=== PATIENT | female | born 1930 ===

== ENCOUNTER 2017-12-07 22:33 | Inpatient (IN) | payer MEDICARE, MEDICAID ==
--- NOTE | 2017-12-07 22:42 | C.PDOC ---
History Of Present Illness 87 year old female with hx of diabetes presents to the ED for evaluation of a hypoglycemic episode earlier today while at home. Patient reports that she has had cold symptoms for the past week and has been evaluated by her PCP for these complaints. She denies pain or lightheadedness. Per EMS, pt with blood sugar in the 30s upon their evaluation. She was given 1 amp D50 en route. Time Seen by Provider: 12/07/17 22:40 Chief Complaint (Nursing): Altered Mental Status History Per: Patient History/Exam Limitations: None Onset/Duration Of Symptoms: Other (Episode) Usual Baseline: Alert Oriented Exacerbating Factor(s): Diabetic Recent travel outside of the [place]: No Past Medical History Reviewed: Historical Data, Nursing Documentation, Vital Signs Vital Signs: Last Vital Signs Temp Pulse 98 H 12/07/17 22:37 Resp 21 12/07/17 22:37 BP 175/88 H 12/07/17 22:37 Pulse Ox 98 12/07/17 22:37 - Medical History PMH: Diabetes Family History: States: No Known Family Hx Review Of Systems Except As Marked, All Systems Reviewed And Found Negative. Constitutional: Negative for: Fever, Chills Cardiovascular: Negative for: Chest Pain, Light Headedness Respiratory: Negative for: Shortness of Breath Gastrointestinal: Negative for: Abdominal Pain Genitourinary: Negative for: Dysuria Skin: Negative for: Rash Neurological: Negative for: Headache Physical Exam - Physical Exam Appears: Well, Non-toxic, No Acute Distress Skin: Normal Color, Warm, Dry Head: Atraumatic, Normacephalic Eye(s): bilateral: Normal Inspection, PERRL, EOMI Oral Mucosa: Moist Throat: Normal Neck: Normal, Normal ROM, Supple Chest: Symmetrical Cardiovascular: Rhythm Regular Respiratory: No Rales, Rhonchi (bilaterally), Wheezing (bilaterally ) Gastrointestinal/Abdominal: Soft, No Tenderness Back: Normal Inspection Extremity: Normal ROM, No Deformity Extremity: Bilateral: Atraumatic Neurological/Psych: Oriented x3, Normal Speech, Other (Awake and alert) ED Course And Treatment - Laboratory Results Result Diagrams: 12/07/17 23:17 12/07/17 23:17 Medical Decision Making Medical Decision Making: Impression: Hypoglycemia Plan: Will order ABG, EKG, CMP, CBC, CXR, blood culture, peak flow pre and post , and UA. Duoneb and IV fluids administered. Disposition Discussed With DrMargaret: Moe Alejo Doctor Will See Patient In The: Hospital Counseled Patient/Family Regarding: Diagnosis - Disposition Disposition: HOSPITALIZED Disposition Time: 00:45 Condition: STABLE Forms: [facility] (Libyan) - POA Present On Arrival: None - Clinical Impression Clinical Impression: Hypoglycemia associated with diabetes, Bronchitis, Wheezes - Scribe Statement The provider has reviewed the documentation as recorded by the Scribe (Riccardo Ang) Provider Attestation: All medical record entries made by the Scribe were at my direction and personally dictated by me. I have reviewed the chart and agree that the record accurately reflects my personal performance of the history, physical exam, medical decision making, and the department course for this patient. I have also personally directed, reviewed, and agree with the discharge instructions and disposition.
[2017-12-07] MEDS ORDERED: Albuterol-Ipratrop 3 mg / 0.5 (3 ml) UD ONE (22:49)
[2017-12-07] MEDS ORDERED: Sodium Chloride 0.9% 1,000 ML IV ONE (22:51)
[2017-12-07] MEDS ORDERED: Albuterol-Ipratrop 3 mg / 0.5 (3 ml) UD INH STA (22:53)
[2017-12-07 23:19] LABS: BASO % 0.2 % (0.0-2.0); LYMPH # 0.3 K/uL (1.0-4.3); LYMPH % 6.7 % (20.0-40.0); MEAN CELL VOLUME 87.3 fL (81.0-99.0); MEAN CORPUSCULAR HEMOGLOBIN 29.9 pg (27.0-31.0); MEAN CORPUSCULAR HGB CONC 34.2 g/dL (33.0-37.0); MEAN PLATELET VOLUME 7.7 fL (7.2-11.7); MONO # 0.3 K/uL (0.0-0.8); MONO % 5.9 % (0.0-10.0); NEUT # 3.9 K/uL (1.8-7.0); NEUT % 87.2 % (50.0-75.0); PLATELET COUNT 132 K/uL (130-400); RBC 4.34 Mil/uL (3.80-5.20); RED CELL DISTRIBUTION WIDTH 13.9 % (11.5-14.5); WHITE BLOOD COUNT 4.5 K/uL (4.8-10.8)
[2017-12-07 23:30] LABS: ABG ALLEN TEST POS; ARTERIAL BLOOD GAS HCO3 23.2 mmol/L (21-28); ARTERIAL BLOOD GAS HEMOGLOBIN 12.6 g/dL (11.7-17.4); ARTERIAL BLOOD GAS O2 SAT 100.2 % (95-98); ARTERIAL BLOOD GAS PCO2 31 mm/Hg (35-45); ARTERIAL BLOOD GAS PH 7.44 (7.35-7.45); ARTERIAL BLOOD GAS PO2 218 mm/Hg (80-100); ARTERIAL BLOOD GAS TCO2 22.1 mmol/L (22-28)
[2017-12-07 23:31] LABS: ALBUMIN 4.1 g/dL (3.5-5.0); ALT/SGPT 63 U/L (9-52); AST/SGOT 93 U/L (14-36); BLOOD UREA NITROGEN 18 mg/dL (7-17); CALCIUM 8.3 mg/dl (8.6-10.4); GFR AFRICAN-AMERICAN > 60; GFR NON-AFRICAN AMERICAN 52
[2017-12-08 00:06] LABS: BANDS 28 % (0-2); LYMPHOCYTE 6 % (20-40); MONOCYTE 7 % (0-10); NEUTROPHIL 58 % (50-75); PLATELET ESTIMATE NORMAL (NORMAL); REACTIVE LYMPHOCYTES 1 % (0-0); TOTAL CELLS COUNTED 100
[2017-12-08] MEDS ORDERED: cefTRIAXone IV 1 gm in Dextros 50 ML IVPB ONE (00:18)
[2017-12-08] MEDS ORDERED: Azithromycin 500mg/250ML NS 500 MG/250 ML BAG IV STA (00:18)
--- NOTE | 2017-12-08 03:45 | CP.PCM.HP ---
History of Present Illness - History of Present Illness History of Present Illness: CC: "My mother became drowsy and stopped responding" HPI: Mrs Waters is a 87 year old female with a past medical history of DM, HTN, HLD, DM who was BIBA last night because the patient became drowsy and stopped responding. The history was provided/translated by the patient's daughter. Per daughter, yesterday evening around 7pm the patient was sitting in a chair when she fell out of the chair. EMS was called however the patient refused to go to the hospital. An hour later the patient was laying in bed when the patient became starting mumbling to herself and would not respond to her daughter. Her eyes rolled back. This frightened the daughter and once again EMS was called, this time the patient was taken to the hospital. Her blood sugar was checked by EMS and found to be in the 30s - she was given 1 amp D50 en route to hospital. Earlier in the day the patient had a outside sales account representative than usual breakfast of pancakes and coffee, a soup in the afternoon, and some vegetables in the evening. She recently began seeing a new PMD who prescribed her the combination drug glipizide/metformin (Rx'd 12/05/17) which is supposed to be taken once a day however the patient has been incorrectly taking this drug twice a day. Additionally, the patient has had cold symptoms since last (4 days ago) with sore throat and dry cough. The patient went to see her PMD and was prescribed azithromycin (Rx'd 12/05/17). Of note, her daughter states she (the daughter) is recovering from the flu and has had regular contact with her mother the last few days. Denies fever, chills, diarrhea, dysuria, nausea, vomiting, chest pain, shortness of breath. 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 absent: Chills, Fever - EENT Eyes: absent: Change in Vision - Cardiovascular Cardiovascular: absent: Chest Pain, Diaphoresis, Dyspnea, Leg Edema - Respiratory Respiratory: Cough. absent: Dyspnea on Exertion - Gastrointestinal Gastrointestinal: absent: Abdominal Pain, Constipation, Diarrhea, Nausea, Vomiting - Genitourinary Genitourinary: absent: Dysuria - Musculoskeletal Musculoskeletal: Abnormal Gait Additional comments: Patient has difficulty ambulating at baseline - Integumentary Integumentary: absent: Bleeding Lesions - Neurological Neurological: absent: Confusion Past Patient History - Infectious Disease Hx of Infectious Diseases: None - Past Social History Smoking Status: Never Smoked - CARDIAC Hx Hypertension: Yes - PULMONARY Hx Respiratory Disorders: No - ENDOCRINE/METABOLIC Hx Diabetes Mellitus Type 2: Yes Hx Hypothyroidism: Yes - PSYCHIATRIC Hx Substance Use: No - SURGICAL HISTORY Hx Surgeries: No - ANESTHESIA Hx Anesthesia: No Meds Allergies/Adverse Reactions: Allergies Allergy/AdvReac Type Severity Reaction Status Date / Time No Known Allergies Allergy Verified 12/07/17 22:47 Physical Exam - Constitutional Appears: Well, No Acute Distress, Younger Than Stated Age - Head Exam Head Exam: ATRAUMATIC, NORMAL INSPECTION - Eye Exam Eye Exam: EOMI, PERRL - ENT Exam ENT Exam: Mucous Membranes Moist - Respiratory Exam Respiratory Exam: Wheezes, NORMAL BREATHING PATTERN. absent: Rales, Rhonchi Additional comments: diffuse wheezing bilaterally - Cardiovascular Exam Cardiovascular Exam: REGULAR RHYTHM, +S1, +S2. absent: Bradycardia, Tachycardia , JVD, Systolic Murmur - GI/Abdominal Exam GI & Abdominal Exam: Normal Bowel Sounds, Soft. absent: Distended, Firm, Tenderness - Extremities Exam Extremities exam: Positive for: normal inspection Additional comments: age related pigmentary changes in LE b/l - Neurological Exam Neurological exam: Oriented x3 - Skin Skin Exam: Intact, Normal Color, Warm Results - Vital Signs Recent Vital Signs: Last Vital Signs Temp Pulse 85 12/08/17 02:51 Resp 20 12/08/17 02:51 BP 129/56 L 12/08/17 02:51 Pulse Ox 98 12/08/17 02:51 - Labs Result Diagrams: 12/07/17 23:17 12/07/17 23:17 Labs: Laboratory Results - last 24 hr 12/07/17 12/07/17 12/07/17 23:17 23:17 23:25 WBC 4.5 L RBC 4.34 Hgb 13.0 Hct 37.9 MCV 87.3 MCH 29.9 MCHC 34.2 RDW 13.9 Plt Count 132 MPV 7.7 Neut % (Auto) 87.2 H Lymph % (Auto) 6.7 L [place] % (Auto) 5.9 Eos % (Auto) 0.0 Baso % (Auto) 0.2 Neut # (Auto) 3.9 Lymph # (Auto) 0.3 L [place] # (Auto) 0.3 Eos # (Auto) 0.0 Baso # (Auto) 0.0 Neutrophils % (Manual) 58 Band Neutrophils % 28 H* Lymphocytes % (Manual) 6 L Reactive Lymphs % 1 H Monocytes % (Manual) 7 Platelet Estimate Normal Puncture Site Rr pCO2 31 L pO2 218 H HCO3 23.2 ABG pH 7.44 ABG Total CO2 22.1 ABG O2 Saturation 100.2 H ABG Base Excess -2.2 L ABG Hemoglobin 12.6 ABG Carboxyhemoglobin 1.7 H POC ABG HHb (Measured) -0.2 L ABG Methemoglobin 1.8 Carter Test Pos A-a O2 Difference -7.0 Respiratory Index 0 Hgb O2 Saturation 96.8 Vent Mode Pt on neb tx FiO2 35.0 Sodium 123 L Potassium 3.7 Chloride 87 L Carbon Dioxide 23 Anion Gap 17 BUN 18 H Creatinine 1.0 Est GFR ( Amer) > 60 Est GFR (Non-Af Amer) 52 Random Glucose 167 H Calcium 8.3 L Total Bilirubin 0.8 AST 93 H ALT 63 H Alkaline Phosphatase 76 Total Protein 8.3 Albumin 4.1 Globulin 4.2 H Albumin/Globulin Ratio 1.0 Influenza Typ A,B (EIA) 12/08/17 02:26 WBC RBC Hgb Hct MCV MCH MCHC RDW Plt Count MPV Neut % (Auto) Lymph % (Auto) [place] % (Auto) Eos % (Auto) Baso % (Auto) Neut # (Auto) Lymph # (Auto) [place] # (Auto) Eos # (Auto) Baso # (Auto) Neutrophils % (Manual) Band Neutrophils % Lymphocytes % (Manual) Reactive Lymphs % Monocytes % (Manual) Platelet Estimate Puncture Site pCO2 pO2 HCO3 ABG pH ABG Total CO2 ABG O2 Saturation ABG Base Excess ABG Hemoglobin ABG Carboxyhemoglobin POC ABG HHb (Measured) ABG Methemoglobin Carter Test A-a O2 Difference Respiratory Index Hgb O2 Saturation Vent Mode FiO2 Sodium Potassium Chloride Carbon Dioxide Anion Gap BUN Creatinine Est GFR ( Amer) Est GFR (Non-Af Amer) Random Glucose Calcium Total Bilirubin AST ALT Alkaline Phosphatase Total Protein Albumin Globulin Albumin/Globulin Ratio Influenza Typ A,B (EIA) Pos for influenza a H Assessment & Plan (1) Hypoglycemia associated with diabetes Assessment and Plan: Per EMS, Patient with blood sugar in 30s en route to ER HOLD home glipizide/metformin 5-500 combination drug Start metformin 500mg PO BID Accuchecks ACHS ISS - Low dose F/U HgbA1C (HgbA1C 6.4 in 05/2017) Status: Acute Priority: High (2) Influenza A Assessment and Plan: Positive for Influenza A screen Wheezing b/l Bandemia Airborne isolation F/U Procalcitonin Tamiflu 75mg PO BID Cont home med Azithromycin (prescribed by PMD) 250mg PO QD (to cover for community acquired pneumonia) * EKG reviewed, QT 440ms Status: Acute Priority: High (3) Hyponatremia Assessment and Plan: Na 123 on admission; malaise/lethargy/confusion could be due to hyponatremia as well as hypoglycemic episode F/U urine osmolality, plasma osmolality F/U cortisol F/U B12 Status: Acute Priority: High (4) Hypothyroidism Assessment and Plan: Cont home levothyroxine 50mcg PO QD F/U TSH/Free T4 Status: Chronic Priority: Medium (5) Hyperlipemia Assessment and Plan: Cont home med Atorvastatin 10mg PO QD Lipid Panel in 05/2017 NORMAL Status: Chronic Priority: Medium (6) Hypertension Assessment and Plan: Cont home med amlodipine besylate 5mg PO QD Cont home med lopressor 100mg PO BID Status: Chronic Priority: Medium (7) Prophylactic measure Assessment and Plan: Protonix 40mg PO QD Lovenox 40mg SC QD Heart healthy carb consistent diet Vitamin C 500mg PO QD Status: Acute Priority: Low
[2017-12-08] MEDS ORDERED: (Novolin R) Insulin Human Regular 100 units/ml vial SC SCH (07:30)
[2017-12-08 08:13] LABS: BASO % 0.1 % (0.0-2.0); HEMOGLOBIN 11.6 g/dL (11.0-16.0); LYMPH # 0.6 K/uL (1.0-4.3); LYMPH % 12.3 % (20.0-40.0); MEAN CELL VOLUME 86.5 fL (81.0-99.0); MEAN CORPUSCULAR HEMOGLOBIN 29.9 pg (27.0-31.0); MEAN CORPUSCULAR HGB CONC 34.5 g/dL (33.0-37.0); MEAN PLATELET VOLUME 7.6 fL (7.2-11.7); MONO # 0.3 K/uL (0.0-0.8); MONO % 6.8 % (0.0-10.0); NEUT # 3.8 K/uL (1.8-7.0); NEUT % 80.8 % (50.0-75.0); NRBC % 0.1 % (0.0-2.0); RBC 3.89 Mil/uL (3.80-5.20); RED CELL DISTRIBUTION WIDTH 13.5 % (11.5-14.5); WHITE BLOOD COUNT 4.7 K/uL (4.8-10.8)
[2017-12-08 08:33] LABS: ALBUMIN 3.5 g/dL (3.5-5.0); ALT/SGPT 53 U/L (9-52); AST/SGOT 83 U/L (14-36); BLOOD UREA NITROGEN 13 mg/dL (7-17); CALCIUM 7.9 mg/dl (8.6-10.4); GFR AFRICAN-AMERICAN > 60; GFR NON-AFRICAN AMERICAN > 60; MAGNESIUM 1.9 mg/dL (1.6-2.3)
--- NOTE | 2017-12-08 08:37 | RAD ---
Chest x-ray single frontal view History: Diabetic. Comparison: 12/07/2017 Findings: Biapical pleural thickening with upper lobe granulomatous changes. Diffuse increased interstitial lung markings. Scattered nodular densities in the right upper lung zone. Tortuous aorta. Calcification at the aortic knob. Degenerative changes in the spine and shoulders. Impression: Biapical pleural thickening with upper lobe granulomatous changes. Diffuse increased interstitial lung markings. Scattered nodular densities in the right upper lung zone. Tortuous aorta.
[2017-12-08 08:53] LABS: URINE BACTERIA RARE (<OCC); URINE BILIRUBIN NEGATIVE (NEGATIVE); URINE BLOOD 2+ (NEGATIVE); URINE CLARITY Clear (Clear); URINE COLOR Yellow (YELLOW); URINE GLUCOSE (UA) 1+ mg/dL (Normal); URINE LEUKOCYTE ESTERASE NEG Leu/uL (Negative); URINE NITRATE NEGATIVE (NEGATIVE); URINE PROTEIN NEGATIVE (NEGATIVE); URINE UROBILINOGEN NORMAL mg/dL (0.2-1.0)
[2017-12-08] MEDS ORDERED: Moxifloxacin IV 400mg/250ml NS 400 MG/250 ML BAG IVPB SCH (09:45)
[2017-12-08] MEDS ORDERED: ATORVASTATIN 10 MG PO SCH (10:00)
[2017-12-08] MEDS: (Novolin R) Insulin Human Regular 100 units/ml vial SC SCH ×3 (11:35→23:08)
[2017-12-08] MEDS: Levothyroxine 50 MCG TAB PO SCH (11:40)
[2017-12-08] MEDS: Oseltamivir 6 MG/ML PO SCH ×2 (11:40→19:30)
[2017-12-08] MEDS: Enoxaparin 40 mg Syringe SC SCH (11:40)
[2017-12-08] MEDS: Pantoprazole 40 mg EC Tab PO SCH (11:40)
--- NOTE | 2017-12-08 15:09 | CP.PCM.PN ---
<AnirudhTrisha - Last Filed: 12/08/17 15:00> Subjective - Date & Time of Evaluation Date of Evaluation: 12/08/17 Time of Evaluation: 15:00 - Subjective Subjective: Patient seen and examined at bedside. Patient resting comfortably in bed with no new complaints at this time. Patient says she feels much better today although she did have a fever this morning. Patient does not complain of cough, however she coughs when straining, per nursing. She denies chills, chest pain, SOB, palpitations, abdominal pain, nausea, vomiting, diarrhea, constipation, leg pain/swelling. Objective - Vital Signs/Intake and Output Vital Signs (last 24 hours): Temp Pulse Resp BP Pulse Ox 98.7 F 51 L 17 92/39 L 95 12/08/17 12:49 12/08/17 14:22 12/08/17 14:22 12/08/17 14:22 12/08/17 14:22 - Medications Medications: Current Medications Acetaminophen (Tylenol 325mg Tab) 650 mg PO Q6 PRN PRN Reason: Fever >100.4 F Last Admin: 12/08/17 11:45 Dose: 650 mg Amlodipine Besylate (Norvasc) 5 mg PO DAILY [facility] Last Admin: 12/08/17 11:40 Dose: 5 mg Ascorbic Acid (Vitamin C 500 Mg Tab) 500 mg PO DAILY [facility] Last Admin: 12/08/17 11:40 Dose: 500 mg Enoxaparin Sodium (Lovenox) 40 mg SC DAILY [facility] Last Admin: 12/08/17 11:40 Dose: 40 mg Gabapentin (Neurontin) 100 mg PO TID [facility] Last Admin: 12/08/17 11:40 Dose: 100 mg Sodium Chloride (Sodium Chloride 0.9%) 1,000 mls @ 50 mls/hr IV .Q20H ONE Stop: 12/08/17 18:50 Last Admin: 12/07/17 23:10 Dose: 50 mls/hr Moxifloxacin HCl (Avelox Iv 400mg/250ml Ns) 400 mg in 250 mls @ 167 mls/hr IVPB Q24H [facility] Last Admin: 12/08/17 11:10 Dose: 167 mls/hr Insulin Human Regular (Novolin R) 0 unit SC ACHS [facility] PRN Reason: Protocol Last Admin: 12/08/17 11:35 Dose: Not Given Levothyroxine Sodium (Synthroid) 50 mcg PO DAILY@0630 [facility] Last Admin: 12/08/17 11:40 Dose: 50 mcg Metoprolol Tartrate (Lopressor) 100 mg PO BID [facility] Last Admin: 12/08/17 11:40 Dose: 100 mg Oseltamivir Phosphate (Tamiflu Susp) 30 mg PO BID [facility] Stop: 12/13/17 07:09 Last Admin: 12/08/17 11:40 Dose: 30 mg Pantoprazole Sodium (Protonix Ec Tab) 40 mg PO DAILY [facility] Last Admin: 12/08/17 11:40 Dose: 40 mg Rosuvastatin Calcium (Crestor) 5 mg PO HS [facility] - Labs Labs: 12/08/17 08:02 12/08/17 08:02 - Constitutional Appears: Non-toxic, No Acute Distress - Head Exam Head Exam: ATRAUMATIC, NORMAL INSPECTION, NORMOCEPHALIC - Eye Exam Eye Exam: EOMI - ENT Exam ENT Exam: Mucous Membranes Moist - Respiratory Exam Respiratory Exam: Rales (right side ), Wheezes (right sided), NORMAL BREATHING PATTERN. absent: Accessory Muscle Use, Rhonchi, Respiratory Distress - Cardiovascular Exam Cardiovascular Exam: RRR, +S1, +S2. absent: Bradycardia, Tachycardia - GI/Abdominal Exam GI & Abdominal Exam: Soft, Normal Bowel Sounds. absent: Distended, Tenderness - Extremities Exam Extremities Exam: Normal Inspection. absent: Calf Tenderness, Pedal Edema - Neurological Exam Neurological Exam: Alert, Awake, Oriented x3 - Psychiatric Exam Psychiatric exam: Normal Affect, Normal Mood - Skin Skin Exam: Dry, Intact, Normal Color, Warm Assessment and Plan - Assessment and Plan (Free Text) Plan: Hypoglycemia associated with diabetes * Blood sugar in 30s en route to ER per EMS * Accuchecks ACHS * HgbA1C 6.1 Meds: * Start metformin 500mg PO BID * ISS - Low dose * HOLD home glipizide/metformin 5-500 combination drug Influenza A * Bandemia * Mild Leukopenia * Airborne isolation * Procalcitonin 0.25 Meds * Tamiflu 75mg PO BID * Moxifloxacin 400 mg Q24 * Held home med Azithromycin (prescribed by PMD) 250mg PO QD (to cover for community acquired pneumonia) Cough * f/u strep pneumo * f/u mycoplasma pneumo * f/u legionella * f/u rapid strep * f/u throat culture * f/u blood culture Meds * Promethazine with codeine prn * Duonebs prn Hyponatremia * malaise/lethargy/confusion could be due to hyponatremia as well as hypoglycemic episode * F/U urine osmolality, plasma osmolality * Cortisol: 20.8 * B12: 275 Transaminitis * Consider hep panel Hypothyroidism * Cont home levothyroxine 50mcg PO QD * TSH/Free T4: 0.63/0.88 Hyperlipemia * Cont home med Atorvastatin 10mg PO QD * Lipid Panel in 05/2017 NORMAL Hypertension * Cont home med amlodipine besylate 5mg PO QD * Cont home med lopressor 100mg PO BID Prophylactic measure * Protonix 40mg PO QD * Lovenox 40mg SC QD * Heart healthy carb consistent diet * Vitamin C 500mg PO QD <Genie John V - Last Filed: 12/08/17 20:59> Objective - Vital Signs/Intake and Output Vital Signs (last 24 hours): Temp Pulse Resp BP Pulse Ox 97.7 F 62 20 111/50 L 96 12/08/17 20:17 12/08/17 20:17 12/08/17 20:17 12/08/17 20:17 12/08/17 20:17 - Medications Medications: Current Medications Acetaminophen (Tylenol 325mg Tab) 650 mg PO Q6 PRN PRN Reason: Fever >100.4 F Last Admin: 12/08/17 11:45 Dose: 650 mg Amlodipine Besylate (Norvasc) 5 mg PO DAILY [facility] Last Admin: 12/08/17 11:40 Dose: 5 mg Ascorbic Acid (Vitamin C 500 Mg Tab) 500 mg PO DAILY [facility] Last Admin: 12/08/17 11:40 Dose: 500 mg Enoxaparin Sodium (Lovenox) 40 mg SC DAILY [facility] Last Admin: 12/08/17 11:40 Dose: 40 mg Gabapentin (Neurontin) 100 mg PO TID [facility] Last Admin: 12/08/17 19:29 Dose: 100 mg Guaifenesin (Robitussin) 100 mg PO Q4H PRN PRN Reason: Cough Moxifloxacin HCl (Avelox Iv 400mg/250ml Ns) 400 mg in 250 mls @ 167 mls/hr IVPB Q24H [facility] Last Admin: 12/08/17 11:10 Dose: 167 mls/hr Insulin Human Regular (Novolin R) 0 unit SC [facility] PRN Reason: Protocol Last Admin: 12/08/17 16:31 Dose: Not Given Levothyroxine Sodium (Synthroid) 50 mcg PO DAILY@0630 [facility] Last Admin: 12/08/17 11:40 Dose: 50 mcg Oseltamivir Phosphate (Tamiflu Susp) 30 mg PO BID [facility] Stop: 12/13/17 07:09 Last Admin: 12/08/17 19:30 Dose: 30 mg Pantoprazole Sodium (Protonix Ec Tab) 40 mg PO DAILY [facility] Last Admin: 12/08/17 11:40 Dose: 40 mg Rosuvastatin Calcium (Crestor) 5 mg PO HS [facility] - Labs Labs: 12/08/17 08:02 12/08/17 08:02 Attending/Attestation - Attestation I have personally seen and examined this patient.: Yes I have fully participated in the care of the patient.: Yes I have reviewed all pertinent clinical information, including history, physical exam and plan: Yes Notes (Text): Patient seen, examined this morning in [facility] [place] ED Bed 7 at 11:30AM. Patient seen this morning with her daughter at bedside. Patient reports she is feeling okay. Patient reports dry cough, had low grade temp: 100.7F, denies chest pain, denies abdominal pain, denies nausea, denies vomitting, denies dysuria, denies hematuria. Patient recently changed providers because her PMD retired. There was some confusion regarding her Janumet because she was instructed to take it as once a day but she takes it as twice a day. Patient reports she had not been eating much. Patient's daughter at bedside just had the flu. Patient did not get vaccinated for the flu this year. Patient' s bandemia has resolved on repeat blood work. Patient on gentle IV hydration. Sodium improved while on gentle IV hydration. Patient ordered for antitussive medication as needed and nebulizer as needed. Assessment/Plan 1) Hypoglycemia associated with diabetes * Blood sugar in 30s en route to ER per EMS imrpoved after ampD50 * Accuchecks ACHS * HgbA1C 6.1 * Controlled Meds: * Held metformin 500mg PO BID today---.>will restart on Metformin 500mg PO BID * ISS - Low dose * HOLD home glipizide/metformin 5-500 combination drug 2) Influenza A+ * + Influenza * High risk individual given age and co-morbidities * Bandemia * Mild Leukopenia * Droplet precautions (not airborne) * Procalcitonin 0.25 * Avelox 400mg IV q daily to cover for pneumonia Meds * Tamiflu 75mg PO BID * Moxifloxacin 400 mg Q24 3) Cough * f/u strep pneumo * f/u mycoplasma pneumo * f/u legionella * f/u rapid strep * f/u throat culture * f/u blood culture Meds * Promethazine with codeine prn switched to Robotussin * Duonebs prn shortness of breathe 4) Hyponatremia * malaise/lethargy/confusion could be due to hyponatremia as well as hypoglycemic episode * Improved while on gentle IV hydration * F/U urine osmolality, plasma osmolality * Cortisol: 20.8 * B12: 275 5) Transaminitis * Order hep panel * Patient is on statin 6) Hypothyroidism * Cont home levothyroxine 50mcg PO QD * TSH/Free T4: 0.63/0.88 7) Hyperlipidemia * Cont home med Atorvastatin 10mg PO QD * Lipid Panel in 05/2017 NORMAL 8)Hypertension * Cont home med amlodipine besylate 5mg PO QD * Cont home med lopressor 100mg PO BID 9) Prophylactic measure * Protonix 40mg PO QDaily * Lovenox 40mg SC Qdaily * Heart healthy carb consistent diet * Vitamin C 500mg PO QDdaily
[2017-12-08] MEDS ORDERED: Promethazine/Cod 6.25mg-10mg/5ml Syr UD PO PRN (15:29)
[2017-12-08] MEDS ORDERED: guaiFENesin 100 mg/5 ml Syrup UD PO PRN (19:50)
[2017-12-08] MEDS ORDERED: Oseltamivir 6 MG/ML PO SCH (20:55)
[2017-12-09] MEDS: Levothyroxine 50 MCG TAB PO SCH (06:58)
[2017-12-09 07:31] LABS: BASO % 0.4 % (0.0-2.0); EOS % 0.2 % (0.0-4.0); HEMOGLOBIN 11.4 g/dL (11.0-16.0); LYMPH # 0.6 K/uL (1.0-4.3); LYMPH % 22.8 % (20.0-40.0); MEAN CELL VOLUME 86.2 fL (81.0-99.0); MEAN CORPUSCULAR HEMOGLOBIN 30.6 pg (27.0-31.0); MEAN CORPUSCULAR HGB CONC 35.4 g/dL (33.0-37.0); MEAN PLATELET VOLUME 8.1 fL (7.2-11.7); MONO # 0.2 K/uL (0.0-0.8); MONO % 8.2 % (0.0-10.0); NEUT # 1.9 K/uL (1.8-7.0); NEUT % 68.4 % (50.0-75.0); NRBC % 0.2 % (0.0-2.0); RBC 3.74 Mil/uL (3.80-5.20); RED CELL DISTRIBUTION WIDTH 13.8 % (11.5-14.5); WHITE BLOOD COUNT 2.8 K/uL (4.8-10.8)
[2017-12-09 07:46] LABS: MAGNESIUM 1.8 mg/dL (1.6-2.3)
[2017-12-09 08:07] LABS: ALBUMIN 3.3 g/dL (3.5-5.0); BLOOD UREA NITROGEN 9 mg/dL (7-17); CALCIUM 7.9 mg/dl (8.6-10.4); GFR AFRICAN-AMERICAN > 60; GFR NON-AFRICAN AMERICAN 59
[2017-12-09 08:08] LABS: ALT/SGPT 53 U/L (9-52); AST/SGOT 100 U/L (14-36)
[2017-12-09] MEDS: (Novolin R) Insulin Human Regular 100 units/ml vial SC SCH ×3 (08:35→16:05)
[2017-12-09] MEDS ORDERED: Potassium Chloride 20 mEq ER Tab PO ONE (09:24)
[2017-12-09] MEDS: Enoxaparin 40 mg Syringe SC SCH (10:08)
[2017-12-09] MEDS: Pantoprazole 40 mg EC Tab PO SCH (10:08)
--- NOTE | 2017-12-09 10:09 | CP.PCM.PN ---
<Julia Roberto E - Last Filed: 12/09/17 15:49> Subjective - Date & Time of Evaluation Date of Evaluation: 12/09/17 Time of Evaluation: 09:15 - Subjective Subjective: Medicine note progress ( Dr. John's service) Patient was seen and examined at bedside with daughter presents. Patient reports that she is doing better with mild cough. Patient denies chest pain, sob , palpitations, abdominal pain, nausea, vomiting. Patient plans to work with physical therapy today. Objective - Vital Signs/Intake and Output Vital Signs (last 24 hours): Temp Pulse Resp BP Pulse Ox 98.6 F 79 18 141/66 93 L 12/09/17 08:19 12/09/17 08:19 12/09/17 08:19 12/09/17 08:19 12/09/17 08:19 - Medications Medications: Current Medications Acetaminophen (Tylenol 325mg Tab) 650 mg PO Q6 PRN PRN Reason: Fever >100.4 F Last Admin: 12/08/17 11:45 Dose: 650 mg Amlodipine Besylate (Norvasc) 5 mg PO DAILY [facility] Last Admin: 12/08/17 11:40 Dose: 5 mg Ascorbic Acid (Vitamin C 500 Mg Tab) 500 mg PO DAILY [facility] Last Admin: 12/08/17 11:40 Dose: 500 mg Enoxaparin Sodium (Lovenox) 40 mg SC DAILY [facility] Last Admin: 12/08/17 11:40 Dose: 40 mg Gabapentin (Neurontin) 100 mg PO TID [facility] Last Admin: 12/08/17 19:29 Dose: 100 mg Guaifenesin (Robitussin) 100 mg PO Q4H PRN PRN Reason: Cough Moxifloxacin HCl (Avelox Iv 400mg/250ml Ns) 400 mg in 250 mls @ 167 mls/hr IVPB Q24H [facility] Insulin Human Regular (Novolin R) 0 unit SC ACHS [facility] PRN Reason: Protocol Last Admin: 12/09/17 08:35 Dose: Not Given Levothyroxine Sodium (Synthroid) 50 mcg PO DAILY@0630 [facility] Last Admin: 12/09/17 06:58 Dose: 50 mcg Oseltamivir Phosphate (Tamiflu Cap) 75 mg PO BID [facility] Stop: 12/13/17 07:09 Pantoprazole Sodium (Protonix Ec Tab) 40 mg PO DAILY [facility] Last Admin: 12/08/17 11:40 Dose: 40 mg Rosuvastatin Calcium (Crestor) 5 mg PO HS [facility] Last Admin: 12/08/17 22:06 Dose: 5 mg - Labs Labs: 12/09/17 07:16 12/09/17 07:16 - Constitutional Appears: Well, No Acute Distress - Head Exam Head Exam: ATRAUMATIC, NORMAL INSPECTION - Eye Exam Eye Exam: EOMI, Normal appearance - ENT Exam ENT Exam: Mucous Membranes Moist - Respiratory Exam Respiratory Exam: Rales, Rhonchi, NORMAL BREATHING PATTERN - Cardiovascular Exam Cardiovascular Exam: REGULAR RHYTHM, +S1, +S2 - GI/Abdominal Exam GI & Abdominal Exam: Soft, Normal Bowel Sounds. absent: Distended, Firm, Guarding, Rigid, Tenderness - Extremities Exam Extremities Exam: Normal Inspection. absent: Calf Tenderness, Pedal Edema - Neurological Exam Neurological Exam: Alert, Awake, Oriented x3 - Psychiatric Exam Psychiatric exam: Normal Affect, Normal Mood - Skin Skin Exam: Normal Color Assessment and Plan (1) Altered mental status Assessment & Plan: Acute, resolved Secondary to hypoglycemic episode * Blood sugar in 30s en route to ER per EMS; D50 was given * Accuchecks * HgbA1C 6.1 Meds: * ISS - Low dose * home glipizide/metformin 5-500 combination drug held Status: Acute (2) Influenza A Assessment & Plan: On admission: * Bandemia of 28, Leukopenia, Procalcitonin 0.25 * Rapid influenza test: positive Medication/Management: * Tamiflu 75mg PO daily * Airborne isolation Status: Acute (3) Cough Assessment & Plan: Resolving, Possibly secondary to mild pneumonia Imaging: Chest X-ray (12/08/17):Biapical pleural thickening with upper lobe granulomatous changes. Diffuse increased interstitial lung markings. Scattered nodular densities in the right upper lung zone. Tortuous aorta. Chest CT (12/09/17): Mild scattered regions of patchy ground-glass opacities, nonspecific ; correlate for infectious or inflammatory etiologies. Bibasilar atelectasis. Labs: * Rapid Strep: Negative * Legionella: Negative * Awaiting mycoplasma and Stre pneumoniae Medication/Management: * Robitussin 100mg PO Q4H PRN * Avelox 400mg IVPB 24hour Status: Acute (4) Hypothyroidism Assessment & Plan: Labs: * TSH/Free T4: 0.63/0.88 Continue home medication * levothyroxine 50mcg PO QD Status: Chronic (5) Hyperlipemia Assessment & Plan: Crestor 5mg PO daily Lipid panel 05/2017: TGL:144, Chol: 164, LDL: 78 and HDL: 60 Status: Chronic (6) Hypertension Assessment & Plan: Controlled with medications: * Norvasc 5mg PO daily * Monitor with vital signs Q4H Status: Chronic (7) Hyponatremia Assessment & Plan: Resolving * Improved with IV hydration * Cortisol: 20.8 * Urine osmolality: 368 * Serum osmolality: 276 Status: Acute (8) Transaminitis Assessment & Plan: Continue to monitor F/u hepatitis panel Status: Acute (9) Prophylactic measure Assessment & Plan: GI: Protonix 40mg PO QDaily DVT: Lovenox 40mg SC Qdaily Heart healthy carb consistent diet Vitamin C 500mg PO QDdaily PT/OT All plans and management discussed with attending, Dr. John Status: Acute <Genie John V - Last Filed: 12/09/17 23:13> Objective - Vital Signs/Intake and Output Vital Signs (last 24 hours): Temp Pulse Resp BP Pulse Ox 99.2 F 87 19 121/66 94 L 12/09/17 20:36 12/09/17 20:36 12/09/17 20:36 12/09/17 20:36 12/09/17 20:36 Intake and Output: 12/09/17 12/10/17 18:59 06:59 Intake Total 530 Balance 530 - Medications Medications: Current Medications Acetaminophen (Tylenol 325mg Tab) 650 mg PO Q6 PRN PRN Reason: Fever >100.4 F Last Admin: 12/08/17 11:45 Dose: 650 mg Amlodipine Besylate (Norvasc) 5 mg PO DAILY [facility] Last Admin: 12/09/17 10:09 Dose: 5 mg Ascorbic Acid (Vitamin C 500 Mg Tab) 500 mg PO DAILY [facility] Last Admin: 12/09/17 10:08 Dose: 500 mg Enoxaparin Sodium (Lovenox) 40 mg SC DAILY [facility] Last Admin: 12/09/17 10:08 Dose: 40 mg Gabapentin (Neurontin) 100 mg PO TID [facility] Last Admin: 12/09/17 17:15 Dose: 100 mg Guaifenesin (Robitussin) 100 mg PO Q4H PRN PRN Reason: Cough Moxifloxacin HCl (Avelox Iv 400mg/250ml Ns) 400 mg in 250 mls @ 167 mls/hr IVPB Q24H [facility] Last Admin: 12/09/17 11:48 Dose: 167 mls/hr Insulin Human Regular (Novolin R) 0 unit SC ACHS [facility] PRN Reason: Protocol Last Admin: 12/09/17 16:05 Dose: Not Given Levothyroxine Sodium (Synthroid) 50 mcg PO DAILY@0630 [facility] Last Admin: 12/09/17 06:58 Dose: 50 mcg Oseltamivir Phosphate (Tamiflu Cap) 75 mg PO BID [facility] Stop: 12/13/17 07:09 Last Admin: 12/09/17 17:15 Dose: 75 mg Pantoprazole Sodium (Protonix Ec Tab) 40 mg PO DAILY [facility] Last Admin: 12/09/17 10:08 Dose: 40 mg Rosuvastatin Calcium (Crestor) 5 mg PO HS [facility] Last Admin: 12/09/17 21:04 Dose: 5 mg - Labs Labs: 12/09/17 07:16 12/09/17 07:16 Attending/Attestation - Attestation I have personally seen and examined this patient.: Yes I have fully participated in the care of the patient.: Yes I have reviewed all pertinent clinical information, including history, physical exam and plan: Yes Notes (Text): Patient seen, examined this morning on 5th floor. Patient seen this morning with her daughter at bedside. patient reports mild cough, dry. Patient mildly hypoxic overnight, Ordered for ABG and CT Chest + Rales and +wheezing on exam. Will continue to cover for pneumonia and flu. Patient is pending PT eval; had refused PT eval we did encourage her to participate with PT to gather her strength. Assessment/Plan 1) Hypoglycemia associated with diabetes * Blood sugar in 30s en route to ER per EMS imrpoved after ampD50 * Accuchecks ACHS * HgbA1C 6.1 * Controlled Meds: * Held metformin 500mg PO BID today---.>will restart on Metformin 500mg PO BID tomorrow 12/10/17 * ISS - Low dose * HOLD home glipizide/metformin 5-500 combination drug 2) Influenza A+ * + Influenza * High risk individual given age and co-morbidities * Bandemia on admission * No bands noted in f/u CBCs * left shift has normalized * Droplet precautions (not airborne) * Procalcitonin 0.25 * Avelox 400mg IV q daily to cover for pneumonia Meds * Tamiflu 75mg PO BID * Moxifloxacin 400 mg Q24H * CT Chest r/o pneumonia * Duonebs scheduled shortness of breathe 3) Cough * f/u strep pneumo * f/u mycoplasma pneumo * legionella: negative * throat culture: normal no strep A * blood culture (12/07/17): no growth after 24hours X2 Meds * Promethazine with codeine prn switched to Robotussin * Duonebs prn shortness of breathe 4) Hyponatremia-->Resolved * normalized * Cortisol: 20.8 * B12: 275 5) Transaminitis * Order hep panel: pending * Mild rise * Will hold tylenol and stain 6) Hypothyroidism * Cont home levothyroxine 50mcg PO QD * TSH/Free T4: 0.63/0.88 7) Hyperlipidemia * hold home med Atorvastatin 10mg PO QD in light of mild transaminitis * Lipid Panel in 05/2017 NORMAL 8)Hypertension * Cont home med amlodipine besylate 5mg PO QD * Monitor vital signs 9) Prophylactic measure * Protonix 40mg PO QDaily * Lovenox 40mg SC Qdaily * Heart healthy carb consistent diet * Vitamin C 500mg PO QDdaily * PT eval/OT eval Disposition: Possible discharge tomorrow; will need to discuss with patient and family in regards to plan for home or rehab.
[2017-12-09] MEDS ORDERED: Potassium & Sodium Phosphate PO ONE (11:00)
[2017-12-09] MEDS: Moxifloxacin IV 400mg/250ml NS 400 MG/250 ML BAG IVPB SCH (11:48)
[2017-12-09 13:46] LABS: ABG ALLEN TEST POS; ARTERIAL BLOOD GAS HCO3 25.8 mmol/L (21-28); ARTERIAL BLOOD GAS HEMOGLOBIN 12.4 g/dL (11.7-17.4); ARTERIAL BLOOD GAS O2 SAT 92.7 % (95-98); ARTERIAL BLOOD GAS PCO2 34 mm/Hg (35-45); ARTERIAL BLOOD GAS PH 7.47 (7.35-7.45); ARTERIAL BLOOD GAS PO2 53 mm/Hg (80-100); ARTERIAL BLOOD GAS TCO2 25.7 mmol/L (22-28)
--- NOTE | 2017-12-09 14:00 | CARD ---
APPROVED REPORT EKG Measurement Heart [id number] <Conclusion> Accelerated Junctional rhythm Nonspecific ST and T wave abnormality Abnormal ECG
--- NOTE | 2017-12-09 14:15 | CT ---
CT chest without IV contrast Indication: Pneumonia Technique: Contiguous axial images were obtained through the chest without intravenous contrast enhancement. Sagittal and coronal reconstructions were generated and reviewed. This CT exam was performed using 1 or more of the following dose reduction techniques: Automated exposure control, adjustment of the MAA and/or kV according to patient size, and/or use of iterative reconstruction technique. Radiation dose (DLP): 459.41 MGy-cm. Comparison: Chest x-ray performed 12/07/17 Findings: The unenhanced mediastinal and hilar vascular structures appear grossly unremarkable. The heart appears within normal limits of size. Dense atherosclerotic calcifications of the thoracic and included upper abdominal aorta as well as coronary arteries. Mild scattered regions of patchy ground-glass opacities, nonspecific ; correlate for infectious or inflammatory etiologies. Bibasilar atelectasis. No pleural effusion. No pneumothorax. Small hiatal hernia/ distal esophageal wall thickening. Limited visualization of the noncontrast upper abdomen: Prominent left extrarenal pelvis. Osseous demineralization. Multilevel degenerative changes. Impression: Mild scattered regions of patchy ground-glass opacities, nonspecific ; correlate for infectious or inflammatory etiologies. Bibasilar atelectasis.
[2017-12-10 00:28] VITALS: RESP 20
[2017-12-10] MEDS ORDERED: Albuterol-Ipratrop 3 mg / 0.5 (3 ml) UD INH SCH (02:00)
[2017-12-10] MEDS: Levothyroxine 50 MCG TAB PO SCH (05:47)
[2017-12-10 07:26] LABS: BASO % 0.3 % (0.0-2.0); EOS % 0.4 % (0.0-4.0); HEMOGLOBIN 11.4 g/dL (11.0-16.0); LYMPH # 0.9 K/uL (1.0-4.3); LYMPH % 27.8 % (20.0-40.0); MEAN CELL VOLUME 88.1 fL (81.0-99.0); MEAN CORPUSCULAR HEMOGLOBIN 29.8 pg (27.0-31.0); MEAN CORPUSCULAR HGB CONC 33.8 g/dL (33.0-37.0); MONO # 0.3 K/uL (0.0-0.8); MONO % 10.7 % (0.0-10.0); NEUT # 1.9 K/uL (1.8-7.0); NEUT % 60.8 % (50.0-75.0); NRBC % 0.1 % (0.0-2.0); RBC 3.81 Mil/uL (3.80-5.20); WHITE BLOOD COUNT 3.1 K/uL (4.8-10.8)
[2017-12-10] MEDS: (Novolin R) Insulin Human Regular 100 units/ml vial SC SCH (07:27)
[2017-12-10 07:50] LABS: ALBUMIN 3.3 g/dL (3.5-5.0); ALT/SGPT 53 U/L (9-52); AST/SGOT 93 U/L (14-36); BLOOD UREA NITROGEN 8 mg/dL (7-17); CALCIUM 8.2 mg/dl (8.6-10.4); GFR AFRICAN-AMERICAN > 60; GFR NON-AFRICAN AMERICAN 59
[2017-12-10 08:29] VITALS: BP 126/70; PULSE 74; TEMP 97.4; O2SAT 98
[2017-12-10] MEDS: Enoxaparin 40 mg Syringe SC SCH (10:04)
[2017-12-10] MEDS: Moxifloxacin IV 400mg/250ml NS 400 MG/250 ML BAG IVPB SCH (10:04)
[2017-12-10] MEDS: Pantoprazole 40 mg EC Tab PO SCH (10:04)
--- NOTE | 2017-12-10 17:33 | CP.PCM.DIS ---
<Julia Roberto E - Last Filed: 12/10/17 17:13> Provider - Provider Date of Admission: 12/08/17 01:50 Attending physician: Genie John DO Time Spent in preparation of Discharge (in minutes): 45 Diagnosis - Discharge Diagnosis (1) Altered mental status Status: Acute (2) Influenza A Status: Acute Priority: High (3) Cough Status: Acute (4) Hypothyroidism Status: Chronic Priority: Medium (5) Hyperlipemia Status: Chronic Priority: Medium (6) Hypertension Status: Chronic Priority: Medium (7) Hyponatremia Status: Acute Priority: High (8) Transaminitis Status: Acute (9) Prophylactic measure Status: Acute Priority: Low Hospital Course - Lab Results Lab Results: Micro Results 12/07/17 22:51 Blood Blood Culture - Preliminary NO GROWTH AFTER 48 HOURS 12/07/17 22:51 Blood Blood Culture - Preliminary NO GROWTH AFTER 48 HOURS 12/08/17 19:43 Throat Group A Strep Throat Culture - Final NORMAL SAPROPHYTIC SANDIP. CULTURE NEGATIVE FOR BETA STREP GROUP A. Most Recent Lab Values WBC 3.1 K/uL (4.8-10.8) L 12/10/17 07:01 RBC 3.81 Mil/uL (3.80-5.20) 12/10/17 07:01 Hgb 11.4 g/dL (11.0-16.0) 12/10/17 07:01 Hct 33.6 % (34.0-47.0) L 12/10/17 07:01 MCV 88.1 fL (81.0-99.0) 12/10/17 07:01 MCH 29.8 pg (27.0-31.0) 12/10/17 07:01 MCHC 33.8 g/dL (33.0-37.0) 12/10/17 07:01 RDW 14.0 % (11.5-14.5) 12/10/17 07:01 Plt Count 115 K/uL (130-400) L 12/10/17 07:01 MPV 8.0 fL (7.2-11.7) 12/10/17 07:01 Neut % (Auto) 60.8 % (50.0-75.0) 12/10/17 07:01 Lymph % (Auto) 27.8 % (20.0-40.0) 12/10/17 07:01 [place] % (Auto) 10.7 % (0.0-10.0) H 12/10/17 07:01 Eos % (Auto) 0.4 % (0.0-4.0) 12/10/17 07:01 Baso % (Auto) 0.3 % (0.0-2.0) 12/10/17 07:01 Neut # (Auto) 1.9 K/uL (1.8-7.0) 12/10/17 07:01 Lymph # (Auto) 0.9 K/uL (1.0-4.3) L 12/10/17 07:01 [place] # (Auto) 0.3 K/uL (0.0-0.8) 12/10/17 07:01 Eos # (Auto) 0.0 K/uL (0.0-0.7) 12/10/17 07:01 Baso # (Auto) 0.0 K/uL (0.0-0.2) 12/10/17 07:01 Neutrophils % (Manual) 58 % (50-75) 12/07/17 23:17 Band Neutrophils % 28 % (0-2) H* 12/07/17 23:17 Lymphocytes % (Manual) 6 % (20-40) L 12/07/17 23:17 Reactive Lymphs % 1 % (0-0) H 12/07/17 23:17 Monocytes % (Manual) 7 % (0-10) 12/07/17 23:17 Differential Comment 12/09/17 07:16 Platelet Estimate Normal (NORMAL) 12/07/17 23:17 Puncture Site Rra 12/09/17 13:43 pCO2 34 mm/Hg (35-45) L 12/09/17 13:43 pO2 53 mm/Hg (80-100) L 12/09/17 13:43 HCO3 25.8 mmol/L (21-28) 12/09/17 13:43 ABG pH 7.47 (7.35-7.45) H 12/09/17 13:43 ABG Total CO2 25.7 mmol/L (22-28) 12/09/17 13:43 ABG O2 Saturation 92.7 % (95-98) L 12/09/17 13:43 ABG Base Excess 1.4 mmol/L (-2.0-3.0) 12/09/17 13:43 ABG Hemoglobin 12.4 g/dL (11.7-17.4) 12/09/17 13:43 ABG Carboxyhemoglobin 2.0 % (0.5-1.5) H 12/09/17 13:43 POC ABG HHb (Measured) 7.0 % (0.0-5.0) H 12/09/17 13:43 ABG Methemoglobin 1.7 % (0.0-3.0) 12/09/17 13:43 Carter Test Pos 12/09/17 13:43 A-a O2 Difference 54.0 mm/Hg 12/09/17 13:43 Respiratory Index 1.0 12/09/17 13:43 Hgb O2 Saturation 89.3 % (95.0-98.0) L 12/09/17 13:43 Vent Mode Pt on neb tx 12/07/17 23:25 FiO2 21.0 % 12/09/17 13:43 Sodium 137 mmol/L (132-148) 12/10/17 06:59 Potassium 3.7 mmol/L (3.6-5.2) 12/10/17 06:59 Chloride 103 mmol/L (98-107) 12/10/17 06:59 Carbon Dioxide 25 mmol/L (22-30) 12/10/17 06:59 Anion Gap 14 (10-20) 12/10/17 06:59 BUN 8 mg/dL (7-17) 12/10/17 06:59 Creatinine 0.9 mg/dL (0.7-1.2) 12/10/17 06:59 Est GFR ( Amer) > 60 12/10/17 06:59 Est GFR (Non-Af Amer) 59 12/10/17 06:59 POC Glucose (mg/dL) 171 mg/dL (65-110) H 12/10/17 15:35 Random Glucose 135 mg/dL (65-105) H 12/10/17 06:59 Hemoglobin A1c 6.1 % (4.2-6.5) 12/08/17 08:02 Serum Osmolality 276 mosm/kg (272-300) 12/08/17 08:02 Calcium 8.2 mg/dl (8.6-10.4) L 12/10/17 06:59 Phosphorus 2.3 mg/dL (2.5-4.5) L 12/10/17 06:59 Magnesium 2.0 mg/dL (1.6-2.3) 12/10/17 06:59 Total Bilirubin 0.5 mg/dL (0.2-1.3) 12/10/17 06:59 AST 93 U/L (14-36) H 12/10/17 06:59 ALT 53 U/L (9-52) H 12/10/17 06:59 Alkaline Phosphatase 57 U/L (38-126) 12/10/17 06:59 Troponin I 0.0590 ng/mL (0.00-0.120) 12/08/17 08:02 Total Protein 6.6 g/dL (6.3-8.3) 12/10/17 06:59 Albumin 3.3 g/dL (3.5-5.0) L 12/10/17 06:59 Globulin 3.3 gm/dL (2.2-3.9) 12/10/17 06:59 Albumin/Globulin Ratio 1.0 (1.0-2.1) 12/10/17 06:59 Triglycerides Cancelled 12/08/17 08:02 Cholesterol Cancelled 12/08/17 08:02 LDL Cholesterol Direct Cancelled 12/08/17 08:02 HDL Cholesterol Cancelled 12/08/17 08:02 Vitamin B12 275 pg/mL (239-931) 12/08/17 08:02 Procalcitonin 0.25 NG/ML (0.19-0.49) 12/08/17 07:48 Free T4 0.88 ng/dL (0.78-2.19) 12/08/17 08:02 TSH 3rd Generation 0.63 mIU/L (0.46-4.68) 12/08/17 08:02 Cortisol AM Sample 20.8 ug/dL (4.46-22.7) 12/08/17 08:02 Urine Color Yellow (YELLOW) 12/08/17 08:44 Urine Clarity Clear (Clear) 12/08/17 08:44 Urine pH 5.0 (5.0-8.0) 12/08/17 08:44 Ur Specific [place] 1.009 (1.003-1.030) 12/08/17 08:44 Urine Protein Negative mg/dL (NEGATIVE) 12/08/17 08:44 Urine Glucose (UA) 1+ mg/dL (Normal) 12/08/17 08:44 Urine Ketones Negative mg/dL (NEGATIVE) 12/08/17 08:44 Urine Blood 2+ (NEGATIVE) H 12/08/17 08:44 Urine Nitrate Negative (NEGATIVE) 12/08/17 08:44 Urine Bilirubin Negative (NEGATIVE) 12/08/17 08:44 Urine Urobilinogen Normal mg/dL (0.2-1.0) 12/08/17 08:44 Ur Leukocyte Esterase Neg [place]/uL (Negative) 12/08/17 08:44 Urine WBC (Auto) 1 /hpf (0-5) 12/08/17 08:44 Urine RBC (Auto) 1 /hpf (0-3) 12/08/17 08:44 Urine Bacteria Rare (<OCC) 12/08/17 08:44 Urine Osmolality 368 mosm/kg (300-1000) 12/08/17 15:24 Influenza Typ A,B (EIA) Pos for influenza a (NEGATIVE) H 12/08/17 02:26 Ur L.pneumophila Ag Negative (NEGATIVE) 12/08/17 Unknown Grp A Beta Strep Ag Negative (NEGATIVE) 12/08/17 19:43 - Hospital Course Hospital Course: HPI (As per admission): Mrs Waters is a 87 year old female with a past medical history of DM, HTN, HLD, DM who was BIBA last night because the patient became drowsy and stopped responding. The history was provided/translated by the patient's daughter. Per daughter, yesterday evening around 7pm the patient was sitting in a chair when she fell out of the chair. EMS was called however the patient refused to go to the hospital. An hour later the patient was laying in bed when the patient became starting mumbling to herself and would not respond to her daughter. Her eyes rolled back. This frightened the daughter and once again EMS was called, this time the patient was taken to the hospital. Her blood sugar was checked by EMS and found to be in the 30s - she was given 1 amp D50 en route to hospital. 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 She recently began seeing a new PMD who prescribed her the combination drug glipizide/metformin (Rx'd 12/05/17) which is supposed to be taken once a day however the patient has been incorrectly taking this drug twice a day. Additionally, the patient has had cold symptoms since last (4 days ago) with sore throat and dry cough. The patient went to see her PMD and was prescribed azithromycin (Rx'd 12/05/17). Of note, her daughter states she (the daughter) is recovering from the flu and has had regular contact with her mother the last few days. Denies fever, chills, diarrhea, dysuria, nausea, vomiting, chest pain, shortness of breath. Hospital Course: Patient was admitted with diagnosis of altered mental status secondary to hypoglycemia state, influenza infection and mild pneumonia. Patient was managed with appropriate antibiotics and medications for patient's other chronic medical issues. Patient remained medically stable over the course admission without any acute issues. Over the course of admission, patient was noted to have transaminits on blood work, which started to improve over hospital course. Prior to discharge, patient was cleared for discharge with appropriate instructions and prescription and assistance for home care and home therapy. Pertinent Imaging: Chest X-ray (12/08/17):Biapical pleural thickening with upper lobe granulomatous changes. Diffuse increased interstitial lung markings. Scattered nodular densities in the right upper lung zone. Tortuous aorta. Chest CT (12/09/17): Mild scattered regions of patchy ground-glass opacities, nonspecific ; correlate for infectious or inflammatory etiologies. Bibasilar atelectasis. This is a brief summary of event. For a complete course, please refer to medical records. Discharge Exam - Head Exam Head Exam: ATRAUMATIC, NORMAL INSPECTION - Eye Exam Eye Exam: EOMI, Normal appearance - Respiratory Exam Respiratory Exam: Clear to PA & Lateral, NORMAL BREATHING PATTERN. absent: Rales, Rhonchi, Wheezes - Cardiovascular Exam Cardiovascular Exam: REGULAR RHYTHM, +S1, +S2 - GI/Abdominal Exam GI & Abdominal Exam: Normal Bowel Sounds, Soft. absent: Distended, Firm, Guarding, Tenderness - Extremities Exam Extremities exam: normal inspection - Neurological Exam Neurological exam: Alert, Oriented x3 - Psychiatric Exam Psychiatric exam: Normal Affect - Skin Skin Exam: Normal Color Discharge Plan - Discharge Medications Prescriptions: Albuterol HFA [Ventolin HFA 90 mcg/actuation (8 g)] 1 puff IH Q4H PRN #1 inhaler PRN Reason: Shortness Of Breath metFORMIN [glucOPHAGE] 500 mg PO BID 30 Days #60 tab Moxifloxacin [Avelox] 400 mg PO DAILY 4 Days #4 tab Oseltamivir [Tamiflu] 5 ml PO BID 5 Days #100 ml - Follow Up Plan Condition: STABLE Disposition: HOME/ ROUTINE Instructions: Cough in Adults, Acute Bronchitis, Adult (DC), Flu, Adult (DC), Moxifloxacin (Systemic), Wheezing, Diabetes Diet , Diabetes Type 2 (DC), Hypothyroidism (Underactive Thyroid) (DC), Low Blood Sugar in People With Diabetes, Hyponatremia (DC), Albuterol, Metformin, Oseltamivir, Drugs to Help Lower Your Cholesterol, Hypertension (DC) Additional Instructions: Please discharge patient home as she is medically stable Please resume all your home medications as prescribed to you, however, do not restart your lipitor 10mmg PO daily, unitl your liver enzymes are rechecked by your primary care physician within a week from discharge. Please stop your diabetic medication : glipzide-metformin combination and start metformin 500mg po bid Please start the following new medication: 1. Albuterol 90mcg 1 puff Q4H prn for moderate to severe shortness of breath 2. Tamiflu 75mg PO twice daily for 4 days 3. Metformin 500mg PO BID 4. Avelox 400mg PO daily for 4 days Please f/u with your primary care physician within a week from discharge for symptoms improvement and to recheck your liver enzymes Please do not start lipitor 10mg PO HS until you recheck your liver enzymes with your primary care physician Please return to the hospital if symptoms resumes Please take care <Genie John V - Last Filed: 12/10/17 22:00> Provider - Provider Date of Admission: 12/08/17 01:50 Attending physician: Genie John, Hospital Course - Lab Results Lab Results: Micro Results 12/07/17 22:51 Blood Blood Culture - Preliminary NO GROWTH AFTER 48 HOURS 12/07/17 22:51 Blood Blood Culture - Preliminary NO GROWTH AFTER 48 HOURS 12/08/17 19:43 Throat Group A Strep Throat Culture - Final NORMAL SAPROPHYTIC SANDIP. CULTURE NEGATIVE FOR BETA STREP GROUP A. Most Recent Lab Values WBC 3.1 K/uL (4.8-10.8) L 12/10/17 07:01 RBC 3.81 Mil/uL (3.80-5.20) 12/10/17 07:01 Hgb 11.4 g/dL (11.0-16.0) 12/10/17 07:01 Hct 33.6 % (34.0-47.0) L 12/10/17 07:01 MCV 88.1 fL (81.0-99.0) 12/10/17 07:01 MCH 29.8 pg (27.0-31.0) 12/10/17 07:01 MCHC 33.8 g/dL (33.0-37.0) 12/10/17 07:01 RDW 14.0 % (11.5-14.5) 12/10/17 07:01 Plt Count 115 K/uL (130-400) L 12/10/17 07:01 MPV 8.0 fL (7.2-11.7) 12/10/17 07:01 Neut % (Auto) 60.8 % (50.0-75.0) 12/10/17 07:01 Lymph % (Auto) 27.8 % (20.0-40.0) 12/10/17 07:01 [place] % (Auto) 10.7 % (0.0-10.0) H 12/10/17 07:01 Eos % (Auto) 0.4 % (0.0-4.0) 12/10/17 07:01 Baso % (Auto) 0.3 % (0.0-2.0) 12/10/17 07:01 Neut # (Auto) 1.9 K/uL (1.8-7.0) 12/10/17 07:01 Lymph # (Auto) 0.9 K/uL (1.0-4.3) L 12/10/17 07:01 [place] # (Auto) 0.3 K/uL (0.0-0.8) 12/10/17 07:01 Eos # (Auto) 0.0 K/uL (0.0-0.7) 12/10/17 07:01 Baso # (Auto) 0.0 K/uL (0.0-0.2) 12/10/17 07:01 Neutrophils % (Manual) 58 % (50-75) 12/07/17 23:17 Band Neutrophils % 28 % (0-2) H* 12/07/17 23:17 Lymphocytes % (Manual) 6 % (20-40) L 12/07/17 23:17 Reactive Lymphs % 1 % (0-0) H 12/07/17 23:17 Monocytes % (Manual) 7 % (0-10) 12/07/17 23:17 Differential Comment 12/09/17 07:16 Platelet Estimate Normal (NORMAL) 12/07/17 23:17 Puncture Site Rra 12/09/17 13:43 pCO2 34 mm/Hg (35-45) L 12/09/17 13:43 pO2 53 mm/Hg (80-100) L 12/09/17 13:43 HCO3 25.8 mmol/L (21-28) 12/09/17 13:43 ABG pH 7.47 (7.35-7.45) H 12/09/17 13:43 ABG Total CO2 25.7 mmol/L (22-28) 12/09/17 13:43 ABG O2 Saturation 92.7 % (95-98) L 12/09/17 13:43 ABG Base Excess 1.4 mmol/L (-2.0-3.0) 12/09/17 13:43 ABG Hemoglobin 12.4 g/dL (11.7-17.4) 12/09/17 13:43 ABG Carboxyhemoglobin 2.0 % (0.5-1.5) H 12/09/17 13:43 POC ABG HHb (Measured) 7.0 % (0.0-5.0) H 12/09/17 13:43 ABG Methemoglobin 1.7 % (0.0-3.0) 12/09/17 13:43 Carter Test Pos 12/09/17 13:43 A-a O2 Difference 54.0 mm/Hg 12/09/17 13:43 Respiratory Index 1.0 12/09/17 13:43 Hgb O2 Saturation 89.3 % (95.0-98.0) L 12/09/17 13:43 Vent Mode Pt on neb tx 12/07/17 23:25 FiO2 21.0 % 12/09/17 13:43 Sodium 137 mmol/L (132-148) 12/10/17 06:59 Potassium 3.7 mmol/L (3.6-5.2) 12/10/17 06:59 Chloride 103 mmol/L (98-107) 12/10/17 06:59 Carbon Dioxide 25 mmol/L (22-30) 12/10/17 06:59 Anion Gap 14 (10-20) 12/10/17 06:59 BUN 8 mg/dL (7-17) 12/10/17 06:59 Creatinine 0.9 mg/dL (0.7-1.2) 12/10/17 06:59 Est GFR ( Amer) > 60 12/10/17 06:59 Est GFR (Non-Af Amer) 59 12/10/17 06:59 POC Glucose (mg/dL) 171 mg/dL (65-110) H 12/10/17 15:35 Random Glucose 135 mg/dL (65-105) H 12/10/17 06:59 Hemoglobin A1c 6.1 % (4.2-6.5) 12/08/17 08:02 Serum Osmolality 276 mosm/kg (272-300) 12/08/17 08:02 Calcium 8.2 mg/dl (8.6-10.4) L 12/10/17 06:59 Phosphorus 2.3 mg/dL (2.5-4.5) L 12/10/17 06:59 Magnesium 2.0 mg/dL (1.6-2.3) 12/10/17 06:59 Total Bilirubin 0.5 mg/dL (0.2-1.3) 12/10/17 06:59 AST 93 U/L (14-36) H 12/10/17 06:59 ALT 53 U/L (9-52) H 12/10/17 06:59 Alkaline Phosphatase 57 U/L (38-126) 12/10/17 06:59 Troponin I 0.0590 ng/mL (0.00-0.120) 12/08/17 08:02 Total Protein 6.6 g/dL (6.3-8.3) 12/10/17 06:59 Albumin 3.3 g/dL (3.5-5.0) L 12/10/17 06:59 Globulin 3.3 gm/dL (2.2-3.9) 12/10/17 06:59 Albumin/Globulin Ratio 1.0 (1.0-2.1) 12/10/17 06:59 Triglycerides Cancelled 12/08/17 08:02 Cholesterol Cancelled 12/08/17 08:02 LDL Cholesterol Direct Cancelled 12/08/17 08:02 HDL Cholesterol Cancelled 12/08/17 08:02 Vitamin B12 275 pg/mL (239-931) 12/08/17 08:02 Procalcitonin 0.25 NG/ML (0.19-0.49) 12/08/17 07:48 Free T4 0.88 ng/dL (0.78-2.19) 12/08/17 08:02 TSH 3rd Generation 0.63 mIU/L (0.46-4.68) 12/08/17 08:02 Cortisol AM Sample 20.8 ug/dL (4.46-22.7) 12/08/17 08:02 Urine Color Yellow (YELLOW) 12/08/17 08:44 Urine Clarity Clear (Clear) 12/08/17 08:44 Urine pH 5.0 (5.0-8.0) 12/08/17 08:44 Ur Specific [place] 1.009 (1.003-1.030) 12/08/17 08:44 Urine Protein Negative mg/dL (NEGATIVE) 12/08/17 08:44 Urine Glucose (UA) 1+ mg/dL (Normal) 12/08/17 08:44 Urine Ketones Negative mg/dL (NEGATIVE) 12/08/17 08:44 Urine Blood 2+ (NEGATIVE) H 12/08/17 08:44 Urine Nitrate Negative (NEGATIVE) 12/08/17 08:44 Urine Bilirubin Negative (NEGATIVE) 12/08/17 08:44 Urine Urobilinogen Normal mg/dL (0.2-1.0) 12/08/17 08:44 Ur Leukocyte Esterase Neg [place]/uL (Negative) 12/08/17 08:44 Urine WBC (Auto) 1 /hpf (0-5) 12/08/17 08:44 Urine RBC (Auto) 1 /hpf (0-3) 12/08/17 08:44 Urine Bacteria Rare (<OCC) 12/08/17 08:44 Urine Osmolality 368 mosm/kg (300-1000) 12/08/17 15:24 Influenza Typ A,B (EIA) Pos for influenza a (NEGATIVE) H 12/08/17 02:26 Ur L.pneumophila Ag Negative (NEGATIVE) 12/08/17 Unknown Grp A Beta Strep Ag Negative (NEGATIVE) 12/08/17 19:43 Attending/Attestation - Attestation I have personally seen and examined this patient.: Yes I have fully participated in the care of the patient.: Yes I have reviewed all pertinent clinical information, including history, physical exam and plan: Yes Notes (Text): Patient seen, examined, case discussed with medical artist. Patient seen this morning. Patient reports she is feeling better. Patient reports that she would like to go home today. Patient does not want rehabilitation. Patient reports she is breathing better and eating better. Patient lung exam has improved. Discussed with medical artist in terms of discharge order and discharge instructions which include 1. Continue Tamiflu 75 by mouth twice a day for 4 days to complete 7 day course. 2. Avelox 400 mg by mouth daily for 4 days to complete 7 day course. 3. Albuterol HFA 1 puff inhaled every 4 when necessary shortness of breath. 4. Metformin 500 by mouth twice a day. This is to replace patient's combination pill Janumet given her A1c is very controlled. 5. Recommended to hold statin and patent has repeat liver function tests on follow-up with her PMD to make sure liver numbers have resolved. Patient is clinically stable for discharge. Discharge instructions discuss with family who have verbalized understanding. Patient will need to follow with her PMD upon discharge.
== END 2017-12-10 16:20 | disposition home or self-care (01) | DRG 637 ==
LOC: C.ER 22:33 → C.9E 12-08 01:50 → C.3T 12-08 21:24 → C.9E 12-08 21:34 → C.5S 12-09 06:18
PROVIDERS: ADMIT Internal Medicine; ATTEND Hospitalist
DX: E11.649 Type 2 diabetes mellitus with hypoglycemia without coma (principal); J10.00 Influenza due to other identified influenza virus with unspecified type of pneumonia; E87.1 Hypo-osmolality and hyponatremia; I10 Essential (primary) hypertension; E78.5 Hyperlipidemia, unspecified; E03.9 Hypothyroidism, unspecified; R74.0 Nonspecific elevation of levels of transaminase and lactic acid dehydrogenase [LDH]; Z79.899 Other long term (current) drug therapy; Z79.84 Long term (current) use of oral hypoglycemic drugs